=== PATIENT | male | born 1955 | race Caucasian/White ===

== ENCOUNTER 2022-06-28 14:18 | Outpatient (CLI) | payer OTHER, SELFPAY ==
--- NOTE | ~2022-06-28 | CT_ITS ---
EXAMINATION: CT LE RT wo con DATE: 06/28/2022 15:03 INDICATION: Right knee osteoarthritis. TECHNIQUE: Computed tomography (CT) of the right knee was performed without intravenous contrast. Aut omated exposure control and iterative reconstruction technique were employed. The dose-length product was 1906.50 mGy-cm. COMPARISON: Right knee radiographs 06/15/2022 FINDINGS: The right hip demonstrates normal bone alignment. No fracture. There is moderate right hip osteoarthritis. The right knee demonstrates severe osteoarthritis of the medial compartment, moderate osteoarthritis of the lateral compartment, and mild osteoarthritis of the patellofemoral compartment . There is a small knee joint effusion. There is a small Zurita's cyst with loose bodies. IMPRESSION: 1. Severe right knee osteoarthritis. 2. Small right knee joint effusion. 3. Small right Zurita's cyst with loose bodies. 4. Moderate right hip osteoarthritis. Reviewed, dictated and finalized at location A. CARD TENDER
--- NOTE | 2022-06-28 15:15 | ECG_ITS ---
Measurements Intervals [place] Rate: 75 P: 58 AR: 154 QRS: -20 QRSD: 98 T: 44 QT: 377 QTc: 421 Interpretive Statements SINUS RHYTHM W VENTRICULAR PREMATURE COMPLEXES EARLY PRECORDIAL R/S TRANSITION VOLTAGE CRITERIA FOR LVH MINIMAL Q WAVES- HIGH LATERAL LEADS NONSPECIFIC T-WAVE ABNORMALITY BORDERLINE ECG NO PREVIOUS ECG AVAILABLE FOR COMPARISON Electronically Signed On 06-28-2022 15:49:53 WINDOWS SERVER SPECIALIST by Moises Arita D.O.
[2022-06-28 15:21] LABS: Albumin Level 4.6 g/dL (3.5-5.1); Estimated Glomerular Filt Rate > 60
== END 2022-06-28 14:19 | disposition home or self-care (01) ==
PROVIDERS: PCP Family Medicine Adolescent Medicine; Visit Provider Orthopaedic Surgery
DX: M17.11 Unilateral primary osteoarthritis, right knee (principal); M25.461 Effusion, right knee; M71.21 Synovial cyst of popliteal space [Baker], right knee; M23.41 Loose body in knee, right knee; M16.11 Unilateral primary osteoarthritis, right hip; R94.31 Abnormal electrocardiogram [ECG] [EKG]
CPT/HCPCS: 36415; 73700; 82040; 82565; 93005

== ENCOUNTER 2022-08-20 09:51 | Outpatient (CLI) | payer OTHER, SELFPAY ==
[2022-08-20 11:13] LABS: Basophils Absolute Auto 0.1 K/mm3 (0.0-0.1); Basophils Percent Auto 1.3 % (0.2-1.2); Eosinophils Absolute Auto 0.3 K/mm3 (0-0.3); Eosinophils Percent Auto 5.9 % (0-4.4); Hematocrit 39.9 % (42.0-52.0); Hemoglobin 13.6 g/dL (14.0-18.0); Immature Granulocyte Absolute 0.01 K/mm3 (0.00-0.031); Immature Granulocyte Percent A 0.2 % (0-0.5); Lymphocytes Absolute Auto 1.55 K/mm3 (0.9-3.2); Lymphocytes Percent Auto 33.9 % (18.3-44.2); Mean Corpuscular HGB Conc 34.1 g/dl (32-36); Mean Corpuscular Hemoglobin 31.3 pg (26-34); Mean Corpuscular Volume 91.7 fl (80-100); Mean Platelet Volume 10.9 fl (7.4-10.4); Monocytes Absolute Auto 0.5 K/mm3 (0.1-0.6); Monocytes Percent Auto 11.6 % (2.6-8.5); Neutrophils Absolute Auto 2.2 K/mm3 (1.3-6.7); Neutrophils Percent Auto 47.1 % (45.5-73.1); Platelet Count Result 178 k/mm3 (150-375); Red Blood Count 4.35 M/mm3 (4.6-6.20); Red Cell Distribution Width 12.7 % (11.5-14.5); White Blood Count 4.6 K/mm3 (4.5-10.0)
[2022-08-20 11:22] LABS: Urine Cotinine NEGATIVE
[2022-08-20 11:29] LABS: Albumin Level 4.4 g/dL (3.5-5.1); Estimated Glomerular Filt Rate > 60; Glucose 93 mg/dL (65-110)
[2022-08-20 11:36] LABS: Hemoglobin A1C 6.2 % (<5.7)
== END 2022-08-20 09:52 | disposition home or self-care (01) ==
LOC: ANHSURGERY 09:56
PROVIDERS: PCP Family Medicine Adolescent Medicine; Visit Provider Orthopaedic Surgery
DX: M17.11 Unilateral primary osteoarthritis, right knee (principal); Z01.818 Encounter for other preprocedural examination
CPT/HCPCS: 80307; 82040; 82565; 82947; 83036; 85025; 87081

== ENCOUNTER 2022-09-13 00:24 | Day surgery (SDC) | payer OTHER, SELFPAY ==
[2022-08-20 10:14] VITALS: BP 141/79; PULSE 63; RESP 16; TEMP 36.4; O2SAT 98; BMI 39.3
--- NOTE | 2022-08-20 10:26 | PC.NURSE ---
Report to the Outpatient Waiting Room, entrance under the green pavilion located off [facility], at time _6:00AM on date __09/13/22 . Planned Procedure Time: __7:30AM . Time changes happen often and if your time is changed the preop area will call you the afternoon before. - You and your visitor will be asked to self-screen and do not enter if you have any COVID symptoms. - A mask is optional within the hospital at this time. Patients may have clear liquids (water, carbonated beverages, clear teas, apple juice) until 3 hours prior to surgery with a maximum of 20 ounces. - No food from midnight until time of surgery Take the following medications with a SIP of water the morning of surgery: ___NONE DO NOT STOP ANY OF YOUR OTHER PRESCRIPTION MEDICATIONS PRIOR TO SURGERY ?EXCEPT THE FOLLOWING Medications to discontinue per physician __HOLD BLUE IMU(TROLAMINE SALICYLATE) 7 DAYS PRE-OP Date to take last dose__09/06/22 Please no make-up, nail swedish, hairspray, perfume, deodorant, or body powder the day of surgery. No jewelry (including any body piercings) or valuables the day of surgery, leave them at home. Please take a shower or bath the night before, or the morning of, surgery with an antibacterial soap. Wear comfortable, loose fitting clothing. Children are encouraged to wear pajamas. - Jewelry must be removed prior to entering the operating room. Rings and piercings that are not removed may be cut off. - The hospital will not accept responsibility for valuables. - Please leave all valuables, including medications, at home the day of surgery. If you are going home after surgery, a licensed cpr ambulance driver must drive you home. - NO public transportation without another adult if you receive anesthesia. - We recommend that an adult stay with you for 24 hours following discharge. - We also recommend that you do not drive, make important decision, drink alcoholic beverages, or take any drugs that were not prescribed by your health care provider for at least 24 hours after your discharge time. Follow any additional instructions given to you from your surgeon. If you or anyone in your household have experienced Covid symptoms in the past week, please notify your surgeon or the nurse liaison at the phone number below for possible testing. Telephone instructions given to __PATIENT & S.O.__and asked if any additional questions and then verbalized understanding. Patient advised to call surgeon office or pre surgery nurse liaison [phone] if any additional questions.
--- NOTE | 2022-09-12 13:56 | P.PNAN_ITS ---
Anes - Initial Pre Proc Eval Procedure: Operation Date: 09/13/22 07:30 Proposed Procedures p Right Custom Total Knee Arthroplasty - Seferino Duenas MD Date/Time: 09/12/22 13:56 Surgeon: Seferino Duenas MD Pre Op Diagnosis: primary OA right knee Patient Data Age: 67 Gender: M Height: 1.77 m Weight: 123.5 kg Last Vital Signs Temp 36.4 C 08/20/22 10:14 Pulse 63 08/20/22 10:14 Resp 16 08/20/22 10:14 BP 141/79 H 08/20/22 10:14 Pulse Ox 98 08/20/22 10:14 O2 Del Method Room Air 08/20/22 10:14 Allergies Allergy/AdvReac Type Severity Reaction Status Date / Time No Known Allergies Allergy Verified 09/13/22 06:27 Home Medications Medication Instructions Recorded Confirmed Type pramipexole 0.5 mg tablet 0.5 mg PO BID 08/20/22 09/13/22 History trolamine salicylate 10 % topical 1 applic topical TID PRN Pain 08/20/22 09/13/22 History cream Patient hx anesthesia problems: none Family hx anesthesia problems: none Results Review: All pre-operative results and documents have been reviewed as part of the pre- operative evaluation. [facility] Past Medical History Medical History (Updated 09/12/22 @ 13:56 by Stevie Garcia MD) Arthritis of right knee History of stress test Obesity Sleep apnea Family History Family History Mother Arthritis Father Restless leg Social History Social History Smoking status: Never smoker Alcohol intake: current Drinks per week: 5 Substance use: never Lack of Transportation: No Lack of Food: Never True Current Housing: I Have Housing Concerned About Future Housing: No Difficulty Paying Gas/Electric Bills: No Difficulty Paying for Meds: No Currently Unemployed: No Education: Master's Degree or Higher Difficulty w/ Childcare or Family Care: No Living arrangements: with family Additional living arrangements comments: S.O. Spiritual care concerns: No Anes - Eval Final PreProcedure Day of Procedure 09/12/22 13:56 Patient weight: obese Heart: regular rate and rhythm Lungs: clear to auscultation and normal air movement Airway: Mallampati scale class II Neurological: alert and oriented Last oral intake: >/= 8 hours ASA classification: III Emergent: no Anesthetic plan: proceed Anesthesia type and monitoring: general LMA Results Review: All pre-operative results and documents have been reviewed as part of the pre- operative evaluation. Informed Consent: The patient's anesthetic plan and its attendant risks and benefits were discussed with the patient/family/POA. Questions were solicited and answers provided to the satisfaction of the patient/family/POA.
--- NOTE | 2022-09-12 13:57 | WPDANESPNB ---
Anes - Peripheral Nerve Block Date/Time: 09/12/22 13:57 I have discussed with the patient/family/POA the placement of a peripheral nerve block for post-operative pain management, including associated risks, benefits, complications, and side effects. Alternative methods of post-operative analgesia were detailed. Questions were solicited and answers provided to the satisfaction of the patient/family/POA. Time-Out: A pre-procedural Time-Out was completed immediately before starting the procedure and confirmed: Patient Identification, Site, Procedure, Patient Position and the Availability of Requisite Equipment. Clinical Indications: Acute post-operative pain management requested by the operative surgeon. Nerve Block Insertion Note Anes-nerve block: adductor canal right Patient position: supine Skin prep: chlorhexidine Needle: 22 gauge, stimulating, insulated echogenic needle. Needle length: 80 mm Technique: ultrasound Technique comment: in plane Injectate: bupivacaine 0.25% with epi 5 mcg/ml (30cc) Observations: tolerated well Complications: none Procedure start time:: 725 Procedure end time:: 730
[2022-09-13] VITALS (15 sets, daily range): BP systolic 114–136; BP diastolic 69–83; PULSE 62–72; RESP 12–19; TEMP 36–36.7; O2SAT 89–100
--- NOTE | ~2022-09-13 | XR_ITS ---
EXAMINATION: [id number] DATE: 09/13/2022 10:41 CDT INDICATION: Right total knee arthroplasty TECHNIQUE: 2 views right knee FINDINGS: There is a right total knee arthroplasty in expected position. Subcutaneous gas with fluid and air in the joint are consistent with recent surgery. No evidence of periprosthetic fracture. IMPRESSION: 1. Recent right total knee arthroplasty. Reviewed, dictated and finalized at location L.
[2022-09-13] MEDS: ACETAMINOPHEN 500 MG TABLET 1000 MG PO ×4 (06:33→23:18)
[2022-09-13] MEDS: LACTATED RINGERS 1,000 ML 30 ML IV CONT ×2 (06:40→10:02)
[2022-09-13] MEDS: TRANEXAMIC ACID 1,000MG/ISO100 1,000 MG/100 ML BAG 200 MG IVPB (07:09)
--- NOTE | 2022-09-13 07:18 | WPDHPUPDATE1 ---
History and Physical Update Update Date/Time: 09/13/22 07:18 History and Physical has been reviewed, including an updated exam of the patient. There are NO changes in the patient's condition. Risks, benefits, and alternatives have been discussed and questions answered. Patient agrees to proceed with procedure.
--- NOTE | 2022-09-13 07:19 | P.OP_ITS ---
Procedure Note - Detailed Date of Procedure 09/13/22 Pre-op Diagnosis primary OA right knee Post-op Diagnosis Same Procedure Performed Total knee arthroplasty, right. Surgeon Seferino Duenas MD Order Processing Clerk Melania Johnson PA-C Anesthesia General and Regional (Subsartorial block.) Findings Excellent bone quality. Large medial release required. Description of Procedure Preoperative antibiotics were given. The limb was prepped and draped in the usual sterile fashion with a well-padded tourniquet high on the thigh. The limb was exsanguinated and the tourniquet inflated to 300 mmHg during exposure and cementation. A longitudinal incision was created just medial to the patella. A trivector approach to the knee was performed. Arthrotomy was taken down through the joint capsule. No significant releases were initially taken. The femur was exposed and the F1 jig was applied. The coring tool was used to remove the cartilage for the F2 jig to sit flush with the bone. The jig was pinned and the distal cut carefully taken. Caliper measurements confirmed appropriate bony resections according to the preoperative templated plan. The F4 cutting jig for the femur was applied, at the standard rotation. The AP and anterior chamfer cuts were taken. The F5 jig was applied and the posterior chamfer cuts were taken. The tibia was prepared using the T1 jig, after removing cartilage for the jig contact points. Proper alignment was checked with the alignment jeri. The tibia was cut using the T1u guide. Gap balancing was performed. Gap measurements were taken and the knee was trialed. Excellent alignment and soft tissue balancing was confirmed. The posterior cruciate ligament was recessed along the proximal tibia. The patella was cut for resurfacing. Three lug holes were drilled. Meniscal remnants were removed. The trial components were assembled. Excellent range of motion and proper soft tissue balancing were confirmed throughout the full range of motion. Patellar tracking was excellent. The knee was copiously irrigated periodically throughout the procedure. The real implants were cemented into position. Excess cement was carefully removed. The wound was closed in layers with interrupted #1 Vicryl suture, #2 strata fix suture, 2-0 strata fix suture, 3-0 strata fix suture. Steri-Strips placed on the skin with the knee flexed. Sterile bulky dressing applied. The patient was brought to the recovery room in stable condition. There were no complications. Physician assistant education director, Melania Johnson PA-C, required for surgery; including patient positioning, draping, tissue retraction, maintaining instrument position. Implants Conformis Imprint total knee arthroplasty. Cemented. Cruciate retaining. 8 mm insert. 38 mm round patella. Estimated Blood Loss 200 Drains No Complications No immediate complications Condition Stable Disposition PACU [facility] Billing Surgery - Charge Forward: Surgery Billing
[2022-09-13] MEDS: ceFAZolin 2 GM/D5W 50 ML 2 GM/50 ML BAG IVPB ×3 (07:30→23:18)
[2022-09-13] MEDS: GENTAMICIN BONE CEMENT REFOBACIN 1 EACH TOPICAL (08:21)
[2022-09-13] MEDS: fentaNYL CITRATE INJ (*CRX) 100 MCG/2 ML VIAL 25 MCG IV PUSH ×4 (10:31→10:59)
--- NOTE | 2022-09-13 11:25 | ADMGEN ---
This patient, Tawanda Dunne, was admitted to Medical Room 253-01. Patient/family oriented to hospital policies and general routines including ID bracelet, bed and alarms, visiting hours, pain management, procedures, bathroom and other care routines, personal items, smoking policy, room service/diet, and visiting hours. Information on how to activate the Rapid Response Team has been discussed. Patient/Family are encouraged to report perceived risks to care and to ask questions if they do not understand what they are told or what they should do.
[2022-09-13] MEDS: PRAMIPEXOLE 0.5 MG TABLET PO (14:05)
[2022-09-13] MEDS: SENNA/DOCUSATE SODIUM TABLET 2 TAB PO (17:09)
[2022-09-13] MEDS: ASPIRIN 81 MG ENTERIC TABLET PO (17:09)
[2022-09-13] MEDS: MELOXICAM 7.5 MG TABLET PO (17:10)
[2022-09-13] MEDS: oxyCODONE HCL (*CRX) 5 MG TAB IR PO (20:39)
[2022-09-13] MEDS: FAMOTIDINE 20 MG TABLET PO (20:39)
[2022-09-14 00:35] VITALS: PULSE 62; RESP 15; O2SAT 96
[2022-09-14 04:53] VITALS: BP 120/70; PULSE 69; RESP 17; TEMP 36.4; O2SAT 97
[2022-09-14] MEDS: ACETAMINOPHEN 500 MG TABLET 1000 MG PO (06:02)
[2022-09-14] MEDS: ceFAZolin 2 GM/D5W 50 ML 2 GM/50 ML BAG IVPB (06:02)
[2022-09-14 06:20] LABS: Basophils Percent Auto 0.4 % (0.2-1.2); Eosinophils Percent Auto 0.5 % (0-4.4); Hematocrit 39.2 % (42.0-52.0); Hemoglobin 12.6 g/dL (14.0-18.0); Immature Granulocyte Absolute 0.03 K/mm3 (0.00-0.031); Immature Granulocyte Percent A 0.4 % (0-0.5); Lymphocytes Absolute Auto 1.05 K/mm3 (0.9-3.2); Lymphocytes Percent Auto 13.3 % (18.3-44.2); Mean Corpuscular HGB Conc 32.1 g/dl (32-36); Mean Corpuscular Hemoglobin 31.3 pg (26-34); Mean Corpuscular Volume 97.3 fl (80-100); Mean Platelet Volume 10.9 fl (7.4-10.4); Monocytes Absolute Auto 0.5 K/mm3 (0.1-0.6); Monocytes Percent Auto 6.7 % (2.6-8.5); Neutrophils Absolute Auto 6.2 K/mm3 (1.3-6.7); Neutrophils Percent Auto 78.7 % (45.5-73.1); Platelet Count Result 202 k/mm3 (150-375); Red Blood Count 4.03 M/mm3 (4.6-6.20); Red Cell Distribution Width 13.2 % (11.5-14.5); White Blood Count 7.9 K/mm3 (4.5-10.0)
[2022-09-14 06:33] LABS: Anion Gap 4 mmol/L (8-16); Blood Urea Nitrogen 18 mg/dL (9-20); Calcium 8.9 mg/dL (8.4-10.2); Carbon Dioxide 30 mmol/L (22-30); Chloride 104 mmol/L (98-107); Estimated CRCL calculation 116 ml/min; Estimated Glomerular Filt Rate > 60; Glucose 107 mg/dL (65-110); Potassium 4.2 mmol/L (3.4-5.0); Sodium 138 mmol/L (137-145)
[2022-09-14] MEDS: FAMOTIDINE 20 MG TABLET PO (07:34)
[2022-09-14] MEDS: MELOXICAM 7.5 MG TABLET PO (07:34)
[2022-09-14] MEDS: ASPIRIN 81 MG ENTERIC TABLET PO (07:34)
[2022-09-14] MEDS: oxyCODONE HCL (*CRX) 5 MG TAB IR PO ×2 (07:34→12:12)
[2022-09-14] MEDS: predniSONE 5 MG TABLET PO (07:34)
[2022-09-14] MEDS: SENNA/DOCUSATE SODIUM TABLET 2 TAB PO (07:34)
[2022-09-14] MEDS: polyethylene glycoL 3350 17 GM POWD.PACK PO (07:35)
--- NOTE | 2022-09-14 07:56 | PM.DS ---
DS: Admitting Diagnosis Discharge Date 09/14/22 Admitting Diagnosis OA knee Right DS: Discharge Diagnosis Discharge Diagnosis (1) Status post total right knee replacement: Code(s): Z96.651 - Presence of right artificial knee joint Status: Acute Assessment and Plan: Postop day 1: Right total knee arthroplasty. Patient tolerated procedure well. No complications. Pain manageable with pain medication. No numbness or tingling. We had a lengthy discussion regarding postoperative wound care, limitations, expectations, and exercises. Patient shows good understanding. He has had initial physical therapy and is tolerating it well. DVT prophylaxis: 81 mg baby aspirin b.i.d. for 14 days. Pain medication: Percocet. Patient has followup appointment with Dr. Duenas in 3 weeks. DS: Summary Hospital Course Reason for hospitalization: Total knee arthroplasty Hospital Course: Patient tolerated procedure well. Has had initial PT/OT. No complications. Pain well managed. Status at Discharge Functional status at discharge: uses cane/walker Overall status at discharge: patient is progressing back to baseline Time Spent with Patient Time attestation: Total time spent providing and/or coordinating discharge services: Exam Narrative: Overweight 67 y/o Male. Resting comfortably in chair. No acute distress. A&O x3. Wearing compression socks bilaterally. Dressing intact with no drainage. Moderate swelling. Small area of ecchymosis. No erythema. No hematoma. Good early range of motion. Calf nontender. Neurologic status intact. No varicosities. Distal pulses palpable. DS: Data Data Completed and Pending Labs on day of discharge: Labs from last 24 hours 09/14/22 09/13/22 06:11 06:34 WBC 7.9 RBC 4.03 L Hgb 12.6 L Hct 39.2 L MCV 97.3 MCH 31.3 MCHC 32.1 RDW 13.2 Plt Count 202 MPV 10.9 H Immature Gran % (Auto) 0.4 Neut % (Auto) 78.7 H Lymph % (Auto) 13.3 L [place] % (Auto) 6.7 Eos % (Auto) 0.5 Baso % (Auto) 0.4 Lymph # (Auto) 1.05 [place] # (Auto) 0.5 Eos # (Auto) 0.0 Baso # (Auto) 0.0 Abs Immat Gran (auto) 0.03 Absolute Neuts (auto) 6.2 Absolute Nucleated RBC 0.0 Nucleated RBC % 0.0 Sodium 138 Potassium 4.2 Chloride 104 Carbon Dioxide 30 Anion Gap 4 L BUN 18 Creatinine 0.70 Estim Creat Clear Calc 116 Estimated GFR > 60 Glucose 107 Calcium 8.9 Blood Type A Positive Antibody Screen Negative Discharge Plan Discharge Patient Disposition: Home, Self-Care Discharge Instructions: See green instruction sheets Patient Instructions: Knee Replacement (DC) Stand Alone Forms: General Discharge Instructions Follow-up/Referrals: Melania Johnson PA [Physician Airplane And Engine Inspector] - Discharge Medications: New meloxicam 15 mg tablet 15 mg PO DAILY Qty: 30 0RF Rx Instructions: Cut in half. Take 1/2 in morning and 1/2 at night. Take with food. Stop if stomach upset. prednisone 5 mg tablet 5 mg PO DAILY 21 Days Qty: 21 0RF aspirin 81 mg tablet,delayed release (DR/EC) 81 mg PO BID 14 Days Qty: 28 0RF oxycodone-acetaminophen 5-325 mg tablet 1 - 2 tablet PO Q4-6H MDD 6 PRN (Reason: pain) Qty: 30 0RF Continued pramipexole 0.5 mg tablet 0.5 mg PO BID Rx Instructions: Take 1 tablet by mouth twice daily- TAKES 1 IN AFTERNOON AND 1 AT HS trolamine salicylate 10 % Cream 1 applic TOPICAL TID PRN (Reason: Pain)
[2022-09-14 08:31] LABS: Glucose Point of Care 110 mg/dl (65-105)
[2022-09-14 08:53] VITALS: BP 114/69; PULSE 70; RESP 16; TEMP 36.8; O2SAT 96
--- NOTE | 2022-09-14 09:40 | WPDANESPN ---
Anes - Prog Note Post-Op Date/Time: 09/14/22 09:40 Cardiovascular status: normal Respiratory status: normal Airway patency: baseline Mental status: baseline Post-Op hydration status: normal Vital Signs: Last Vital Signs Temp 98.2 F 09/14/22 08:53 Pulse 70 09/14/22 08:53 Resp 16 09/14/22 08:53 BP 114/69 09/14/22 08:53 Pulse Ox 96 09/14/22 08:53 O2 Del Method Autopap 09/14/22 00:35 O2 Flow Rate 2 09/13/22 11:07 Pain Score (VAS): 3 I/O: Intake & Output 09/13/22 09/14/22 09/14/22 23:59 07:59 15:59 Intake Total 340 450 Balance 340 450 Laboratory Tests 09/14/22 06:11 09/14/22 06:11 09/14/22 09/14/22 06:11 08:17 WBC 7.9 RBC 4.03 L Hgb 12.6 L Hct 39.2 L MCV 97.3 MCH 31.3 MCHC 32.1 RDW 13.2 Plt Count 202 MPV 10.9 H Immature Gran % (Auto) 0.4 Neut % (Auto) 78.7 H Lymph % (Auto) 13.3 L [place] % (Auto) 6.7 Eos % (Auto) 0.5 Baso % (Auto) 0.4 Lymph # (Auto) 1.05 [place] # (Auto) 0.5 Eos # (Auto) 0.0 Baso # (Auto) 0.0 Abs Immat Gran (auto) 0.03 Absolute Neuts (auto) 6.2 Absolute Nucleated RBC 0.0 Nucleated RBC % 0.0 Sodium 138 Potassium 4.2 Chloride 104 Carbon Dioxide 30 Anion Gap 4 L BUN 18 Creatinine 0.70 Estim Creat Clear Calc 116 Estimated GFR > 60 Glucose 107 POC Capillary Glucose 110 H Calcium 8.9 Post-procedural complaints: none Patient Feedback: Patient satisfied with anesthetic care.
== END 2022-09-14 12:22 | disposition home or self-care (01) ==
LOC: ANHSURGERY 09:14 → ANH2MED 11:09
PROVIDERS: Physician Assistant Surgical; PCP Family Medicine Adolescent Medicine; Visit Provider Orthopaedic Surgery
PROC: (CPT 27447; principal; 2022-09-13 07:30)
DX: M17.11 Unilateral primary osteoarthritis, right knee (principal)
CPT/HCPCS: 27447; 36415; 73560; 80048; 80307; 82040; 82565; 82947; 82948; 83036; 85025; 86850; 86900; 86901; 87081; 97110; 97116; 97161; 97165; 97535; A9270; C1713; C1776; J0171; J0690; J1100; J1885; J2250; J2270; J2405; J2704; J2795; J3010; J7120; J7512

== ENCOUNTER 2022-10-04 14:27 | Outpatient (CLI) | payer OTHER, SELFPAY ==
--- NOTE | ~2022-10-04 | XR_ITS ---
XR knee RT min 4V DATE: 10/04/2022 15:07 INDICATION: Joint replacement TECHNIQUE: [place], lateral and weightbearing AP and PA views COMPARISON: None FINDINGS: Status post right total knee arthroplasty with patellar resurfacing. No fracture or disloca tion, periosteal reaction or bone destruction. IMPRESSION: Status post right total knee arthroplasty Reviewed, dictated and finalized at location L.
== END 2022-10-04 14:28 | disposition home or self-care (01) ==
LOC: ANHIMG 14:33
PROVIDERS: PCP Family Medicine Adolescent Medicine; Visit Provider Orthopaedic Surgery
DX: Z47.1 Aftercare following joint replacement surgery (principal)
CPT/HCPCS: 73564

== ENCOUNTER 2023-09-12 14:22 | Outpatient (CLI) | payer OTHER, SELFPAY ==
--- NOTE | ~2023-09-12 | XR_ITS ---
XR knee RT 3V DATE: 09/12/2023 14:48 INDICATION: One-year follow-up post right knee arthroplasty TECHNIQUE: 4 views COMPARISON: 11/01/2022 right knee FINDINGS: Status post right total knee arthroplasty with patellar resurfacing. There is prominent enthesopathy of the superior pole of the patella at the quadriceps tendon insertio n. No fracture or dislocation or joint effusion, periosteal reaction or bone destruction is evident. IMPRESSION: Status post right total knee arthroplasty Reviewed, dictated and finalized at location B.
== END 2023-09-12 14:23 | disposition home or self-care (01) ==
LOC: ANHIMG 14:25
PROVIDERS: PCP Family Medicine Adolescent Medicine; Visit Provider Orthopaedic Surgery
DX: Z96.651 Presence of right artificial knee joint (principal)
CPT/HCPCS: 73562

== ENCOUNTER 2024-01-08 08:35 | Outpatient (CLI) | payer OTHER, SELFPAY ==
--- NOTE | ~2024-01-08 | CT_ITS ---
EXAMINATION: CT LE LT wo con DATE: 01/08/2024 09:02 INDICATION: Left knee primary osteoarthritis. Preoperative planning. TECHNIQUE: Computed tomography (CT) of the left lower limb was performed without intravenous contrast . Automated exposure control and iterative reconstruction technique were employed. The dose-length pr oduct was 1710.23 mGy-cm. COMPARISON: None FINDINGS: There is moderate left hip osteoarthritis. Left knee demonstrates varus angulation. There i s severe osteoarthritis of medial compartment and mild osteoarthritis of lateral and patellofemoral c ompartments. There is chondrocalcinosis of the menisci and articular cartilage. No knee joint effusio n. There is prepatellar and superficial infrapatellar bursitis. IMPRESSION: 1. Severe left knee osteoarthritis. Reviewed, dictated and finalized at location A.
--- NOTE | 2024-01-08 09:07 | ECG_ITS ---
Test Date: 2024-01-08 09:20:44 Measurements Intervals [place] Rate: P: GA: QRS: QRSD: T: QT: QTc: Interpretive Statements SINUS BRADYCARDIA VOLTAGE CRITERIA FOR LVH BORDERLINE T WAVE ABNORMALITY- INFERIOR LEADS BORDERLINE ECG Electronically Signed On 01-08-2024 09:27:25 CDT by Moises Arita D.O.
[2024-01-08 09:58] LABS: Hematocrit 43.2 % (42.0-52.0); Hemoglobin 14.4 g/dL (14.0-18.0)
[2024-01-08 10:17] LABS: Albumin Level 4.6 g/dL (3.5-5.1); Estimated Glomerular Filt Rate > 60; Glucose 109 mg/dL (65-110)
[2024-01-08 10:49] LABS: Hemoglobin A1C 6.5 % (<5.7)
== END 2024-01-08 08:36 | disposition home or self-care (01) ==
LOC: ANHIMG 08:37
PROVIDERS: PCP Family Medicine Adolescent Medicine; Visit Provider Orthopaedic Surgery
DX: M17.12 Unilateral primary osteoarthritis, left knee (principal); G47.33 Obstructive sleep apnea (adult) (pediatric); R73.01 Impaired fasting glucose; R94.31 Abnormal electrocardiogram [ECG] [EKG]
CPT/HCPCS: 36415; 73700; 82040; 82565; 82947; 83036; 85014; 85018; 93005

== ENCOUNTER 2024-02-26 11:39 | Outpatient (CLI) | payer OTHER, SELFPAY ==
[2024-02-26 13:31] LABS: Basophils Absolute Auto 0.1 K/mm3 (0.0-0.1); Eosinophils Absolute Auto 0.3 K/mm3 (0-0.3); Eosinophils Percent Auto 5.9 % (0-4.4); Hematocrit 40.3 % (42.0-52.0); Hemoglobin 13.6 g/dL (14.0-18.0); Immature Granulocyte Absolute 0.01 K/mm3 (0.00-0.031); Immature Granulocyte Percent A 0.2 % (0-0.5); Lymphocytes Absolute Auto 1.42 K/mm3 (0.9-3.2); Lymphocytes Percent Auto 28.7 % (18.3-44.2); Mean Corpuscular HGB Conc 33.7 g/dl (32-36); Mean Corpuscular Hemoglobin 32.3 pg (26-34); Mean Corpuscular Volume 95.7 fl (80-100); Mean Platelet Volume 12.3 fl (7.4-10.4); Monocytes Absolute Auto 0.5 K/mm3 (0.1-0.6); Monocytes Percent Auto 9.7 % (2.6-8.5); Neutrophils Absolute Auto 2.7 K/mm3 (1.3-6.7); Neutrophils Percent Auto 54.5 % (45.5-73.1); Platelet Count Result 178 k/mm3 (150-375); Red Blood Count 4.21 M/mm3 (4.6-6.20); Red Cell Distribution Width 13.4 % (11.5-14.5)
[2024-02-26 13:43] LABS: Urine Cotinine NEGATIVE
[2024-02-26 13:53] LABS: Albumin Level 4.7 g/dL (3.5-5.1); Estimated Glomerular Filt Rate > 60; Glucose 88 mg/dL (65-110)
[2024-02-26 14:44] LABS: MRSA (PCR) NOT DETECTED (NOT DETECTE)
== END 2024-02-26 11:40 | disposition home or self-care (01) ==
PROVIDERS: PCP Family Medicine Adolescent Medicine; Visit Provider Orthopaedic Surgery
DX: M17.12 Unilateral primary osteoarthritis, left knee (principal); Z01.818 Encounter for other preprocedural examination
CPT/HCPCS: 80307; 82040; 82565; 82947; 85025; 87641

== ENCOUNTER 2024-03-19 01:10 | Day surgery (SDC) | payer OTHER, SELFPAY ==
[2024-02-26 11:54] VITALS: BMI 36.1
--- NOTE | 2024-02-26 12:13 | PC.NURSE ---
Report to the Outpatient Waiting Room, entrance under the green pavilion located off [facility], at time __10:30 am on date 03/19/24 . Planned Procedure Time: __12:30 pm .? Time changes happen often and if your time is changed the preop area will call you the afternoon before. - You and your visitor will be asked to self-screen and do not enter if you have any COVID symptoms. Please call surgeon if you need to reschedule. - A mask is optional within the hospital at this time. Patients may have clear liquids (water, carbonated beverages, clear teas, apple juice) until 3 hours prior to surgery( 9:30 am) with a maximum of 20 ounces. - No food from midnight until time of surgery and no smoking - Infants may have breast milk until 4 hours before surgery, formula 6 hours prior to surgery. - Children will be allowed to drink immediately following surgery.? If applicable, please bring a bottle or sippy cup to assist with drinking. Juice, water, soda, and popsicles are readily available.? For infants on formula, please bring formula the day of surgery.? Pacifiers are allowed. Take only the following medications with a SIP of water on the morning of surgery: __NONE DO NOT STOP ANY OF YOUR OTHER PRESCRIPTION MEDICATIONS PRIOR TO SURGERY EXCEPT THE FOLLOWING Medications to discontinue per physician NONE Date to take last dose Please no make-up, nail malay, hairspray, perfume, deodorant, or body powder the day of surgery.? No jewelry (including any body piercings) or valuables the day of surgery, leave them at home.? Please take a shower or bath the night before, or the morning of, surgery with an antibacterial soap.? Wear comfortable, loose fitting clothing.? Children are encouraged to wear pajamas. - Jewelry must be removed prior to entering the operating room.? Rings and piercings that are not removed may be cut off. - The hospital will not accept responsibility for valuables.? - Please leave all valuables, including medications, at home the day of surgery. If you are going home after surgery, a licensed water truck driver must drive you home.? - NO public transportation without another adult if you receive anesthesia. - We recommend that an adult stay with you for 24 hours following discharge. - We also recommend that you do not drive, make important decision, drink alcoholic beverages, or take any drugs that were not prescribed by your health care provider for at least 24 hours after your discharge time. Follow any additional instructions given to you from your surgeon. VERBAL AND WRITTEN instructions given to _PATIENT and asked if any additional questions and then verbalized understanding. Patient advised to call surgeon office or pre surgery nurse liaison [phone] if any additional questions.
[2024-02-26 12:25] VITALS: BP 124/83; PULSE 59; RESP 18; TEMP 36.9; O2SAT 98
[2024-03-19] VITALS (14 sets, daily range): BP systolic 107–136; BP diastolic 69–89; PULSE 65–87; RESP 14–20; TEMP 35.8–36.6; O2SAT 93–99
--- NOTE | ~2024-03-19 | XR_ITS ---
EXAMINATION: [id number] DATE: 03/19/2024 12:43 INDICATION: Total left knee arthroplasty. Postop. TECHNIQUE: 2 views of left knee on 3 radiographs were obtained. COMPARISON: None. FINDINGS: There is a total left knee arthroplasty with patellar resurfacing in near-anatomic alignmen t. No fracture. There is gas in the knee joint and soft tissues, consistent with recent surgery . IMPRESSION: 1. Total left knee arthroplasty in near-anatomic alignment. Reviewed, dictated and finalized at location A. 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
[2024-03-19] MEDS: LACTATED RINGERS 1,000 ML 30 ML IV CONT ×2 (08:45→12:19)
[2024-03-19] MEDS: TRANEXAMIC ACID 1,000MG/ISO100 1,000 MG/100 ML BAG 200 MG IVPB (08:45)
[2024-03-19] MEDS: ACETAMINOPHEN 500 MG TABLET 1000 MG PO (08:45)
--- NOTE | 2024-03-19 09:54 | WPDHPUPDATE1 ---
History and Physical Update Update Date/Time: 03/19/24 09:54 History and Physical has been reviewed, including an updated exam of the patient. There are NO changes in the patient's condition. Risks, benefits, and alternatives have been discussed and questions answered. Patient agrees to proceed with procedure.
--- NOTE | 2024-03-19 10:02 | WPDANESEPPF ---
Anes - Initial Pre Proc Eval Procedure: Operation Date: 03/19/24 10:00 Proposed Procedures p Left Custom Total Knee Arthroplasty - Seferino Duenas MD Date/Time: 03/19/24 10:02 Surgeon: Seferino Duenas MD Pre Op Diagnosis: primary OA left knee Patient Data Age: 68 Gender: M Height: 1.79 m Weight: 113 kg Last Vital Signs Temp 96.4 F L 03/19/24 08:45 Pulse 71 03/19/24 08:45 Resp 14 03/19/24 08:45 BP 107/76 03/19/24 08:45 Pulse Ox 99 03/19/24 08:45 O2 Del Method Room Air 03/19/24 08:45 Allergies Allergy/AdvReac Type Severity Reaction Status Date / Time No Known Allergies Allergy Verified 03/19/24 08:58 Home Medications Medication Instructions Recorded Confirmed Type pramipexole 0.5 mg tablet 0.5 mg PO TID #270 tabs 11/03/23 02/26/24 Rx Laboratory Tests 03/19/24 08:37 Blood Type A Positive Antibody Screen Negative Patient hx anesthesia problems: none Family hx anesthesia problems: none Results Review: All pre-operative results and documents have been reviewed as part of the pre-operative evaluation. 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) History of vasectomy (2001) Family History Family History Mother Arthritis Father Restless leg Social History Social History Smoking status: Never smoker Additional smoking assessment comments: DENIES ANY FORM OF TOBACCO USE Alcohol intake: current Drinks per week: 5 Alcohol use details: TEQUILA Substance use: never Do You Feel Safe in your Home?: Yes Lack of Transportation: No Lack of Food: Never True Current Housing: I Have Housing Concerned About Future Housing: No Difficulty Paying Gas/Electric Bills: No Difficulty Paying for Meds: No Currently Unemployed: No Education: Master's Degree or Higher Difficulty w/ Childcare or Family Care: No Living arrangements: with family Additional living arrangements comments: S.O. Gender identity (if verbalized by the patient): Male Sexual Orientation (if Verbalized by the Patient): Straight or Heterosexual Spiritual care concerns: No Anes - Eval Final PreProcedure Day of Procedure 03/19/24 10:02 Patient weight: obese Heart: regular rate and rhythm Lungs: clear to auscultation Airway: Mallampati scale class II Neurological: alert and oriented Last oral intake: >/= 8 hours ASA classification: III Emergent: no Anesthetic plan: proceed Anesthesia type and monitoring: general LMA and standard monitoring Results Review: All pre-operative results and documents have been reviewed as part of the pre-operative evaluation. Informed Consent: The patient's anesthetic plan and its attendant risks and benefits were discussed with the patient/family/POA. Questions were solicited and answers provided to the satisfaction of the patient/family/POA.
[2024-03-19] MEDS: ceFAZolin 2 GM/D5W 50 ML 2 GM/50 ML BAG IVPB ×2 (10:08→17:42)
[2024-03-19] MEDS: SODIUM CHLORIDE 0.9% IV 37.7 ML, MORPHINE SULFATE INJ (*CRX) 2 MG, ROPivacaine HCL 1% 2... INFILTRATE (10:42)
[2024-03-19] MEDS: TRANEXAMIC ACID 1,000 MG/10 ML AMPUL 1000 MG IV PUSH (11:53)
--- NOTE | 2024-03-19 12:42 | W.PM.PROC2 ---
Procedure Note - Detailed Date of Procedure 03/19/24 Pre-op Diagnosis Left knee degenerative arthritis. Post-op Diagnosis Same Procedure Performed Custom total knee arthroplasty, left. Surgeon Seferino Duenas MD Ekg Monitor Tech Melania Johnson PA-C Anesthesia General and Regional (Subsartorial block.) Description of Procedure Preoperative antibiotics were given. The limb was prepped and draped in the usual sterile fashion with a well-padded tourniquet high on the thigh. The limb was exsanguinated and the tourniquet inflated to 300 mmHg. A longitudinal incision was created just medial to the patella. A trivector approach to the knee was performed. Arthrotomy was taken down through the joint capsule. No significant releases were initially taken. The femur was exposed and the F1 jig was applied. The coring tool was used to remove the cartilage for the F2 jig to sit flush with the bone. The jig was pinned and the distal cut carefully taken. Caliper measurements confirmed appropriate bony resections according to the preoperative templated plan. The F4 cutting jig for the femur was applied, at the standard rotation. The AP and anterior chamfer cuts were taken. The F5 jig was applied and the posterior chamfer cuts were taken. The tibia was prepared using the T1 jig, after removing cartilage for the jig contact points. Proper alignment was checked with the alignment jeri. The tibia was cut using the T1u guide. Gap balancing was performed. Gap measurements were taken and the knee was trialed. Excellent alignment and soft tissue balancing was confirmed. The posterior cruciate ligament was recessed along the proximal tibia. The patella was cut for resurfacing. Three lug holes were drilled. Meniscal remnants were removed. The trial components were assembled. Excellent range of motion and proper soft tissue balancing were confirmed throughout the full range of motion. Patellar tracking was excellent. The knee was copiously irrigated periodically throughout the procedure. The real implants were cemented into position. Excess cement was carefully removed. The wound was closed in layers with interrupted #1 Vicryl suture, 2-0 strata fix suture, 0 strata fix suture, 2-0 strata fix suture. Steri-Strips placed on the skin with the knee flexed. Sterile bulky dressing applied. The patient was brought to the recovery room in stable condition. There were no complications. Physician executive marketing assistant, Melania Pisarski, PA-C, required for surgery; including patient positioning, draping, tissue retraction, maintaining instrument position, cement removal, wound closure, and dressing placement. Implants Conformis Custom total knee arthroplasty. Cemented. Cruciate retaining. 7C insert. 41 mm oval patella. Estimated Blood Loss 50 Drains No Complications No immediate complications Condition Stable Disposition PACU [facility] Billing Surgery - Charge Forward: Surgery Billing
[2024-03-19] MEDS: fentaNYL CITRATE INJ (*CRX) 100 MCG/2 ML VIAL 25 MCG IV PUSH ×4 (12:48→13:08)
--- NOTE | 2024-03-19 13:30 | ADMGEN ---
This patient, Tawanda Dunne, was admitted to Medical Room 254-01. Patient/family oriented to hospital policies and general routines including ID bracelet, bed and alarms, visiting hours, pain management, procedures, bathroom and other care routines, personal items, smoking policy, room service/diet, and visiting hours. Information on how to activate the Rapid Response Team has been discussed. Patient/Family are encouraged to report perceived risks to care and to ask questions if they do not understand what they are told or what they should do.
[2024-03-19] MEDS: PRAMIPEXOLE 0.5 MG TABLET PO ×3 (14:10→23:45)
[2024-03-19] MEDS: ACETAMINOPHEN 325 MG TABLET 650 MG PO ×3 (14:10→23:32)
[2024-03-19] MEDS: oxyCODONE/ACETAMINOPHEN (*CRX) 5-325 MG TABLET 1 TABLET PO (14:11)
[2024-03-19] MEDS: MELOXICAM 7.5 MG TABLET PO (16:53)
[2024-03-19] MEDS: SENNA/DOCUSATE SODIUM TABLET 2 TAB PO (16:53)
[2024-03-19] MEDS: predniSONE 5 MG TABLET PO (16:54)
[2024-03-19] MEDS: FAMOTIDINE 20 MG TABLET PO (20:30)
[2024-03-19] MEDS: ASPIRIN 81 MG ENTERIC TABLET PO (20:30)
[2024-03-20] MEDS: ceFAZolin 2 GM/D5W 50 ML 2 GM/50 ML BAG IVPB ×2 (01:55→08:56)
[2024-03-20 04:43] VITALS: BP 129/78; PULSE 60; RESP 18; TEMP 36.8; O2SAT 100
[2024-03-20] MEDS: ACETAMINOPHEN 325 MG TABLET 650 MG PO (06:16)
[2024-03-20] MEDS: PRAMIPEXOLE 0.5 MG TABLET PO (06:16)
[2024-03-20 06:18] LABS: Basophils Percent Auto 0.1 % (0.2-1.2); Hematocrit 38.3 % (42.0-52.0); Hemoglobin 12.6 g/dL (14.0-18.0); Immature Granulocyte Absolute 0.04 K/mm3 (0.00-0.031); Immature Granulocyte Percent A 0.5 % (0-0.5); Lymphocytes Absolute Auto 0.69 K/mm3 (0.9-3.2); Lymphocytes Percent Auto 8.7 % (18.3-44.2); Mean Corpuscular HGB Conc 32.9 g/dl (32-36); Mean Corpuscular Hemoglobin 31.8 pg (26-34); Mean Corpuscular Volume 96.7 fl (80-100); Mean Platelet Volume 11.9 fl (7.4-10.4); Monocytes Absolute Auto 0.4 K/mm3 (0.1-0.6); Monocytes Percent Auto 5.3 % (2.6-8.5); Neutrophils Absolute Auto 6.8 K/mm3 (1.3-6.7); Neutrophils Percent Auto 85.4 % (45.5-73.1); Platelet Count Result 187 k/mm3 (150-375); Red Blood Count 3.96 M/mm3 (4.6-6.20); Red Cell Distribution Width 13.4 % (11.5-14.5); White Blood Count 7.9 K/mm3 (4.5-10.0)
[2024-03-20 06:33] LABS: Anion Gap 4 mmol/L (4-12); Blood Urea Nitrogen 22 mg/dL (9-20); Calcium 9.3 mg/dL (8.4-10.2); Carbon Dioxide 26 mmol/L (22-30); Chloride 107 mmol/L (98-107); Estimated CRCL calculation 113 ml/min; Estimated Glomerular Filt Rate > 60; Glucose 138 mg/dL (65-110); Potassium 4.3 mmol/L (3.4-5.0); Sodium 137 mmol/L (137-145)
[2024-03-20 07:02] VITALS: BP 117/65; PULSE 65; RESP 14; TEMP 36.3; O2SAT 94
--- NOTE | 2024-03-20 07:53 | PM.DS ---
DS: Admitting Diagnosis Discharge Date 03/20/24 Admitting Diagnosis Knee arthritis. DS: Discharge Diagnosis Discharge Diagnosis (1) Status post total left knee replacement: Code(s): Z96.652 - Presence of left artificial knee joint Status: Acute Assessment and Plan: Postop day 1: Left total knee arthroplasty. Patient tolerated procedure well. No complications. Pain manageable with pain medication. No numbness or tingling. We had a lengthy discussion regarding postoperative wound care, limitations, expectations, and exercises. Patient shows good understanding. He has had initial physical therapy and is tolerating it well. DVT prophylaxis: 81 mg baby aspirin b.i.d. for 14 days. Pain medication: Percocet. Meloxicam. Prednisone. Patient has followup appointment with Dr. Duenas in 3 weeks. DS: Summary Hospital Course Reason for hospitalization: Total knee arthroplasty Hospital Course: Patient tolerated procedure well. Has had initial PT/OT. No complications. Pain well managed. Status at Discharge Functional status at discharge: uses cane/walker Overall status at discharge: patient is progressing back to baseline Time Spent with Patient Time attestation: Total time spent providing and/or coordinating discharge services: Exam Narrative: Overweight 68 y/o Male. Resting comfortably in chair. No acute distress. A&O x3. Wearing compression socks bilaterally. Dressing intact with no drainage. Moderate swelling. Small area of ecchymosis. No erythema. No hematoma. Good early range of motion. Calf nontender. Neurologic status intact. No varicosities. Distal pulses palpable. DS: Data Data Completed and Pending Labs on day of discharge: Labs from last 24 hours 03/20/24 03/19/24 05:53 08:37 WBC 7.9 RBC 3.96 L Hgb 12.6 L Hct 38.3 L MCV 96.7 MCH 31.8 MCHC 32.9 RDW 13.4 Plt Count 187 MPV 11.9 H Immature Gran % (Auto) 0.5 Neut % (Auto) 85.4 H Lymph % (Auto) 8.7 L [place] % (Auto) 5.3 Eos % (Auto) 0.0 Baso % (Auto) 0.1 L Lymph # (Auto) 0.69 L [place] # (Auto) 0.4 Eos # (Auto) 0.0 Baso # (Auto) 0.0 Abs Immat Gran (auto) 0.04 H Absolute Neuts (auto) 6.8 H Absolute Nucleated RBC 0.000 Nucleated RBC % 0.0 Sodium 137 Potassium 4.3 Chloride 107 Carbon Dioxide 26 Anion Gap 4 BUN 22 H Creatinine 0.70 Estim Creat Clear Calc 113 Estimated GFR > 60 Glucose 138 H Calcium 9.3 Blood Type A Positive Antibody Screen Negative Discharge Plan Discharge Patient Disposition: Home, Self-Care Discharge Instructions: See green instruction sheets Patient Instructions: Aspirin (By mouth) Stand Alone Forms: General Discharge Instructions Follow-up/Referrals: Melania Johnson PA [Physician Carton Making Machine Operator] - Discharge Medications: New aspirin 81 mg tablet,delayed release (DR/EC) 81 mg PO BID 14 Days Qty: 28 0RF meloxicam 15 mg tablet 15 mg PO DAILY Qty: 30 0RF Rx Instructions: Cut in half. Take 1/2 in morning and 1/2 at night. Take with food. Stop if stomach upset. prednisone 5 mg tablet 5 mg PO DAILY 21 Days Qty: 21 0RF oxycodone-acetaminophen 5-325 mg tablet 1 - 2 tablet PO Q4-6H PRN (Reason: pain) 7 Days Qty: 30 0RF Continued pramipexole 0.5 mg tablet 0.5 mg PO TID Qty: 270 3RF
[2024-03-20] MEDS: SENNA/DOCUSATE SODIUM TABLET 2 TAB PO (08:56)
[2024-03-20] MEDS: polyethylene glycoL 3350 17 GM POWD.PACK PO (08:56)
[2024-03-20] MEDS: FAMOTIDINE 20 MG TABLET PO (08:56)
[2024-03-20] MEDS: MELOXICAM 7.5 MG TABLET PO (08:56)
[2024-03-20] MEDS: ASPIRIN 81 MG ENTERIC TABLET PO (08:56)
--- NOTE | 2024-03-20 10:36 | P.PNAN_ITS ---
Anes - Prog Note Post-Op Date/Time: 03/20/24 10:36 Cardiovascular status: normal Respiratory status: normal Airway patency: baseline Mental status: baseline Post-Op hydration status: normal Vital Signs: Last Vital Signs Temp 36.3 C L 03/20/24 07:02 Pulse 65 03/20/24 07:02 Resp 14 03/20/24 07:02 BP 117/65 03/20/24 07:02 Pulse Ox 94 03/20/24 07:02 O2 Del Method Room Air 03/19/24 15:24 O2 Flow Rate 8 03/19/24 12:30 Pain Score (VAS): 08/06 I/O: Intake & Output 03/19/24 03/20/24 03/20/24 23:59 07:59 15:59 Intake Total 390 350 240 Balance 390 350 240 Laboratory Tests 03/20/24 05:53 03/20/24 05:53 03/20/24 05:53 WBC 7.9 RBC 3.96 L Hgb 12.6 L Hct 38.3 L MCV 96.7 MCH 31.8 MCHC 32.9 RDW 13.4 Plt Count 187 MPV 11.9 H Immature Gran % (Auto) 0.5 Neut % (Auto) 85.4 H Lymph % (Auto) 8.7 L [place] % (Auto) 5.3 Eos % (Auto) 0.0 Baso % (Auto) 0.1 L Lymph # (Auto) 0.69 L [place] # (Auto) 0.4 Eos # (Auto) 0.0 Baso # (Auto) 0.0 Abs Immat Gran (auto) 0.04 H Absolute Neuts (auto) 6.8 H Absolute Nucleated RBC 0.000 Nucleated RBC % 0.0 Sodium 137 Potassium 4.3 Chloride 107 Carbon Dioxide 26 Anion Gap 4 BUN 22 H Creatinine 0.70 Estim Creat Clear Calc 113 Estimated GFR > 60 Glucose 138 H Calcium 9.3 Post-procedural complaints: none Patient Feedback: Patient satisfied with anesthetic care.
== END 2024-03-20 12:08 | disposition home or self-care (01) ==
LOC: ANHSURGERY 07:56 → ANH2MED 13:23
PROVIDERS: Physician Assistant Surgical; PCP Family Medicine Adolescent Medicine; Visit Provider Orthopaedic Surgery
PROC: (CPT 27447; principal; 2024-03-19 10:00)
DX: M17.12 Unilateral primary osteoarthritis, left knee (principal); G47.30 Sleep apnea, unspecified; E66.9 Obesity, unspecified; Z68.35 Body mass index [BMI] 35.0-35.9, adult
CPT/HCPCS: 27447; 36415; 73560; 80048; 80307; 82040; 82565; 82947; 85025; 86850; 86900; 86901; 87641; 97110; 97116; 97161; 97165; 97535; A9270; C1713; C1776; J0171; J0690; J1100; J1885; J2003; J2250; J2270; J2405; J2704; J2795; J3010; J7120; J7512

== ENCOUNTER 2024-04-10 09:21 | Outpatient (CLI) | payer OTHER, SELFPAY ==
--- NOTE | ~2024-04-10 | US_ITS ---
EXAMINATION:US venous doppler LE LT INDICATION:Localized edema TECHNIQUE: Multiple grayscale, color flow and Doppler images of the left lower extremity deep venous systems were obtained and reviewed. COMPARISON:No prior studies for comparison. FINDINGS: The common femoral, superficial femoral and popliteal veins demonstrate normal respiratory variation, augmentation and compressibility. Color flow is also seen within the posterior tibial, pe roneal, greater saphenous and profunda veins. There is a Zurita's cyst measuring 4.7 x 1.7 x 3.3 cm. IMPRESSION: 1: No lower extremity deep venous thrombosis. Reviewed, dictated and finalized at location B. 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
== END 2024-04-10 09:22 | disposition home or self-care (01) ==
PROVIDERS: PCP Family Medicine Adolescent Medicine; Visit Provider Physician Assistant Surgical
DX: R60.0 Localized edema (principal)
CPT/HCPCS: 93971